=== PATIENT | female | born 1995 | race Caucasian/White ===

== ENCOUNTER 2016-05-29 19:16 | Emergency (ER) | payer OTHER ==
[2016-05-29 19:34] VITALS: BP 146/76; PULSE 75; TEMP 98.1; BMI 25.0
--- NOTE | 2016-05-29 20:24 | PDOC ---
History of Present Illness - General Chief Complaint: Bleeding from Anus Stated Complaint: VAGINAL BLEEDING Time Seen by Provider: 05/29/16 20:05 - History of Present Illness Initial Comments: 05/29/16 20:24 CHIEF COMPLAINT: rectal bleeding HISTORY OF PRESENT ILLNESS: 20 yo F with no significany PMH presents to ED with intermittent painless rectal bleeding x 2 months. Patient states that her last episode of rectal bleeding was 2 days ago (no bleeding today), and it was a "full bloody toilet." She denies any rectal or abdominal pain, and denies any urinary frequency, pain with urination, or blood in urine. She reports having "abnormal' bowel movements, and states "sometmies I will go 2-3 days without going, and then I'll go." She states she normally has hard bowel movements. She also reports having "abnormal periods" because she recently had Nexplanon placed. She states she was "spotting this morning but it stopped this afternoon. She does report having chlamydia 2 yaers ago and was treated. No recent travel or sick contacts. PAST MEDICAL HISTORY: Denies past medical history FAMILY HISTORY: asthma SOCIAL HISTORY: Lives at home with family. Denies tobacco, alcohol, illicit drug use. SURGICAL HISTORY: Denies ALLERGIES: No known drug allergies REVIEW OF SYSTEMS General/Constitutional: Denies fever or chills. Denies weakness, weight change. HEENT: Denies change in vision. Denies ear pain or discharge. Denies sore throat. Cardiovascular: Denies chest pain or shortness of breath. Respiratory: Denies cough, wheezing, or hemoptysis. Gastrointestinal: Denies nausea, vomiting, diarrhea or constipation. Denies rectal bleeding. Genitourinary: Denies dysuria, frequency, or change in urination. Musculoskeletal: Denies joint or muscle swelling or pain. Denies neck or back pain. Skin and breasts: Denies rash or easy bruising. Neurologic: Denies headache, vertigo, loss of consciousness, or loss of sensation. Psychiatric: Denies depression or anxiety. Endocrine: Denies increased thirst. Denies abnormal weight change. Hematologic/Lymphatic: Denies anemia, easy bleeding, or history of blood clots. Allergic/Immunologic: Denies hives or skin allergy. Denies latex allergy. PHYSICAL EXAM General Appearance: Well-appearing, appropriately dressed. No apparent distress , no intoxication. HEENT: EOMI, PERRLA, normal ENT inspection, normal voice, TMs normal, pharynx normal. No conjunctival pallor. No photophobia, scleral icterus. Neck: Supple. Trachea midline. No tenderness, rigidity, carotid bruit, stridor , lymphadenopathy, or thyromegaly. Respiratory/Chest: Lungs CTAB. No shortness of breath, chest tenderness, respiratory distress, accessory muscle use. No crackles, rales, rhonchi, stridor , wheezing, dullness Cardiovascular: RRR. S1, S2. No JVD, murmur, bradycardia, tachycardia. Vascular Pulses: Dorsalis-Pedis (R): 2+, Dorsalis-Pedis (L): 2+ Gastrointestinal/Abdominal: Two hemorrhoids approximately 5 mm in diameter to anus at 6 o' clock. Healing fissure noted at 12 o' clock. Normal bowel sounds. Abdomen soft, non-distended. No tenderness or rebound tenderness. No organomegaly, pulsatile mass, guarding, hernia, hepatomegaly, splenomegaly. Lymphatic: No adenopathy, tenderness. Musculoskeletal/Extremities: Normal inspection. FROM of all extremities, normal capillary refill. Pelvis Stable. No CVA tenderness. No tenderness to extremities, pedal edema, swelling, erythema or deformity. Integumentary: Appropriate color, dry, warm. No cyanosis, erythema, jaundice or rash Neurologic: design engineering specialist II-XII intact. Fully oriented, alert. Appropriate mood/affect. Motor strength 5/5. No appreciable EOM palsy, facial droop or sensory deficit. 05/29/16 21:09 Past History - Past Medical History Allergies/Adverse Reactions: Allergies Allergy/AdvReac Type Severity Reaction Status Date / Time No Known Allergies Allergy Verified 05/29/16 19:29 Home Medications: Ambulatory Orders Etonogestrel [Nexplanon] 68 mg SQ ASDIR 05/29/16 Phenyleph/Pramoxin/Glycr/W.pet [Preparation H Cream] 26 gm RC QID #1 tube Asthma: Yes - Immunization History Immunization Up to Date: Yes - Psycho/Social/Smoking Cessation Hx Suicidal Ideation: No Smoking History: Never smoked Hx Alcohol Use: No Drug/Substance Use Hx: No Substance Use Type: None *Physical Exam - Vital Signs Last Vital Signs Temp Pulse Resp BP Pulse Ox 98.1 F 75 18 146/76 100 05/29/16 19:30 05/29/16 19:30 05/29/16 19:30 05/29/16 19:30 05/29/16 19:30 ED Treatment Course - LABORATORY CBC & Chemistry Diagram: 05/29/16 20:40 Medical Decision Making - Medical Decision Making 05/29/16 21:15 20 yo F with no significant PM presents to ED with bleeding anal fissure and hemorrhoids. Recommend conservative treatment and hemorrhoid cream with close follow up with GI. Advised patient to use medication as directed and follow up with GI this week. Advised patient of signs and symptoms for return to ED, patient verbalized understandnig and agrees to plan. *DC/Admit/Observation/Transfer Diagnosis at time of Disposition: Anal fissure Hemorrhoids Qualifiers: Hemorrhoid type: unspecified Qualified Code(s): K64.9 - Unspecified hemorrhoids - Discharge Dispostion Disposition: HOME Condition at time of disposition: Stable Admit: No - Prescriptions Prescriptions: Phenyleph/Pramoxin/Glycr/W.pet [Preparation H Cream] 26 gm RC QID #1 tube - Referrals Referrals: Dawit Moore MD [Staff Physician] - - Patient Instructions Printed Discharge Instructions: DI for Hemorrhoids, DI for Anal Fissure Additional Instructions: Please follow up with a patient scheduler (referral provided) this week for further evaluation and possible colonoscopy. Please use medication as prescribed, be sure to clean and dry the rectal area prior to application. As discussed, please increase your dietary intake of fiber. You may also use sitz baths or witch manuel pads to decrease inflammation in the area. If you experience severe loss of blood, are unable to pass bowels for more than 3 days , develop dizziness, nausea or vomiting, or any new or worsening symptoms, please return to the ER immediately.
[2016-05-29 20:44] LABS: URINE APPEARANCE CLEAR; URINE BILIRUBIN NEGATIVE (NEGATIVE); URINE BLOOD NEGATIVE (NEGATIVE); URINE COLOR LTYELLOW; URINE GLUCOSE (UA) NEGATIVE (NEGATIVE); URINE KETONE NEGATIVE (NEGATIVE); URINE LEUK ESTERASE NEGATIVE (NEGATIVE); URINE NITRITE NEGATIVE (NEGATIVE); URINE PROTEIN NEGATIVE (NEGATIVE); URINE UROBILINOGEN NEGATIVE E.U./dl (0.2-1.0)
[2016-05-29 20:52] LABS: MCH 25.1 pg (25.7-33.7); MCHC 31.3 g/dl (32.0-36.0); MEAN CELL VOLUME 80.1 fl (80-96); PLATELET COUNT 214 K/MM3 (134-434); RDW 14.7 % (11.6-15.6); WHITE BLOOD COUNT 7.3 K/mm3 (4.0-10.0)
[2016-05-29 21:05] LABS: STOOL FOR OCCULT BLOOD NEGATIVE (NEGATIVE)
== END 2016-05-29 21:34 | disposition home or self-care (01) ==
LOC: JER 19:16
DX: K60.2 Anal fissure, unspecified (principal); K64.9 Unspecified hemorrhoids
CPT/HCPCS: 36415; 81003; 82272; 84703; 85027; 87086; 99282-25